=== PATIENT | female | born 1985 | race Caucasian/White ===

== ENCOUNTER 2017-08-19 17:50 | Observation (INO) | payer BC, OTHER ==
[~2017-08-19] VITALS: Ht 162.6 cm; Wt 92.5 kg
[2017-08-19] MEDS ORDERED: IBUPROFEN800 MG PO (18:48)
[2017-08-19] MEDS ORDERED: GUAIFEN-CODEINE10 ML PO (18:49)
[2017-08-19] MEDS ORDERED: ACETAZOLAMIDE250 MG PO (18:52)
--- NOTE | 2017-08-19 22:58 | NUR ---
REPORT RECEIVED FROM Geovany RN, ELIUD. PT ARRIVES TO FLOOR VIA STRETCHER, AMBULATED TO BATHROOM TO VOID AND THEN AMBULATED TO BED. PT APPEARS STEADY ON FEET. ALERT/ORIENTED. REPORTS 4/10 PAIN IN RUQ THAT RADIATES TO SHOULDER, DENIES NEED FOR PAIN MEDICATION AT THIS TIME. LUNGS CLEAR, DIM ON RIGHT SIDE, TACHYPNIC RR: 25-30, RA. HR REGULAR AND TACHY, HR: 115-120. BOWEL TONES ACTIVE, DENIES NAUSEA. SKIN APPEARS GROSSLY INTACT. IV SITES PATENT, IVF INFUSING WNL. PT LAYING ON LEFT SITE, STATES ITS THE ONLY COMFORTABLE POSITION BESIDES SITTING STRAIGHT UP OR STANDING. EDUCATED TO USE CALL LIGHT. ICE WATER AND APPLE JUICE PROVIDED PER REQUEST, PT DOZING WHEN I RETURNED TO ROOM. WILL CONTINUE TO MONITOR.
--- NOTE | 2017-08-19 23:57 | NUR ---
PT CALLED AND STATED THAT HER PAIN WAS STARTING TO GET WORSE, RATES IT 8/10. 10MG PO OXYCODONE GIVEN AT THIS TIME WITH A SNACK OF PUDDING AND CRACKERS. PT SITTING AT SIDE OF BED, RR: 25, SPO2: 95% ON RA. HR: 128. PT DENIES FURTHER REQUESTS, WILL CONTINUE TO MONITOR.
--- NOTE | 2017-08-20 00:58 | NUR ---
PT APPEARS TO BE SLEEPING, NO APPARENT DISTRESS. RESPIRATIONS ARE EVEN AND UNLABORED, RR:20, SPO2: 95% ON RA. HR:118. IVF INFUSING WNL. WILL CONTINUE TO MONITOR.
--- NOTE | 2017-08-20 03:19 | NUR ---
PT WOKE UP AND I COULD HEAR HER GROANING IN PAIN FROM NURSES' STATION, WENT IN TO CHECK ON HER. PT STATES "I MUST HAVE TRIED TO ROLL OVER IN MY SLEEP, NOW IT'S HURTING. CAN I STAND UP?" PT STOOD AT SIDE OF BED WITHOUT ASSISTANCE, THEN AMBULATED TO BATHROOM TO VOID. ONCE RETURNING TO BED, PT STATED THAT THE PAIN WAS STARTING TO DECREASE. I LET HER KNOW THAT SHE COULD HAVE TYLENOL NOW, SINCE HER OTHER PAIN MEDICATION ISN'T DUE YET, BUT PT DENIES NEED FOR MEDICATION AT THIS TIME. ASSESSMENT WAS COMPLETED, NO CHANGES FROM PREVIOUS ASSESSMENT. FRESH WATER AND WARM BLANKET PROVIDED. PT DENIES FURTHER REQUESTS AT THIS TIME.
--- NOTE | 2017-08-20 05:08 | NUR ---
PT CALLED AND REQUESTED PAIN MEDICATION FOR 710 PAIN IN RUQ. 10 MG PO OXYCODONE GIVEN AT THIS TIME. PT DENIES FURTHER NEEDS, WILL CONTINUE TO MONITOR.
--- NOTE | 2017-08-20 05:32 | NUR ---
PT NEEDED TO BE REPOSITIONED FOR LAB DRAW WHICH CAUSED AN INCREASE IN PT'S PAIN, PT YELLED OUT. WITH PAIN, PT TAKES SHALLOW BREATHS AND HER SATURATIONS DECREASED TO 85%. PT PLACED ON 2L OXYGEN. WHEN ASKED IF THERE WAS ANYTHING THAT COULD BE DONE TO HELP PT, SHE REQUESTED TO BE LEFT ALONE. PT IS NOW RESTING IN BED, APPEARS COMFORTABLE. RR:24, SPO2: 97% ON 2L. HR:109.
--- NOTE | 2017-08-20 07:20 | NUR ---
PT CALLED AND REQUESTED TO MOVE TO CHAIR. PT ABLE TO AMBULATE WITHOUT ASSISTANCE. PT STATEST THAT SHE FEELS THAT THE PAIN MEDICATION "IS NOT TOUCHING" HER PAIN. TOLD HER I WOULD CALL DR. WALKER AND SEE IF WE CAN GET SOMETHING ELSE FOR PAIN. CALLED DR. WALKER AND INFORMED HIM OF PT'S PAIN AND RECENT VITAL SIGNS. NEW ORDERS RECEIVED AND READ BACK FOR A ONE TIME DOSE OF 10MG PO OXYCODONE AND AN ORDER FOR A LIDOCAINE PATCH.
--- NOTE | 2017-08-20 07:40 | NUR ---
pt sitting up in the chair, appears to be slightly anxious, resp shallow. pt states "my pain is a 5/10 if I don't move". Questioned pt if she was painful with breath (inspiration/expiration), pt nods head. 10 mg po Oxycodone given per one time order. Vital stable at this time. pt has call light within reach. on continuious pulse ox monitor.
--- NOTE | 2017-08-20 08:00 | NUR ---
IV SITES INTACT, NO REDNESS OR SWELLING NOTED, PT DENIES PAIN WITH FLUSH, FLUSHES EASILY.
--- NOTE | 2017-08-20 08:40 | NUR ---
CALLED TO UPDATE ON PT PAIN STATUS. PT EXTREMLY PAINFUL, TAKING SHORT SHALLOW BREATHS, O2 SAT IS 98% ON 1L O2. PAIN MEDICATION AMOUNT ALREADY INCREASED FROM 10 MG TO 20 MG. ORDER GIVEN FOR VISTARIL 25 MG PRN ANXIETY
--- NOTE | 2017-08-20 09:26 | NUR ---
MED REC COMPLETE
--- NOTE | 2017-08-20 09:30 | NUR ---
PT SITTING UP IN BED, CALM, REPORTS PAIN IMPROVED, UNABLE TO GIVE A SCORE AT THIS TIME. VITALS WNL.
--- NOTE | 2017-08-20 10:45 | NUR ---
PT SLEEPING AT THIS TIME, VITALS WNL.
--- NOTE | 2017-08-20 11:28 | NUR ---
PT UP AND AMBULATED TO THE BATHROOM WITH STANDBY ASSIST. PT STATES PAIN IS "TOLLERABLE" AND RATES 5/10. PT HR ELEVATED WITH AMBULATION. PT ABLE TO BRUSH TEETH, WASH HANDS AND FACE, THEN AMBULATED BACK TO BED. LINENS CHANGED ON BED. PT ORDERED SOME FOOD, STATES "I'M STARVING".
--- NOTE | 2017-08-20 12:40 | NUR ---
PT IV SITES INTACT, NO REDNESS OR SWELLING NOTED, FLUSH EASILY, PT DENIES PAIN AT SITE. PAIN MEDICATION OPTIONS DISCUSSED WITH PT OF 10 MG UP TO 20 MG OF PO OXYCODONE. PT WOULD PREFER TO TAKE 20 MG SHE STATES "I AM JUST AFRAID THAT MY PAIN IS GOING TO GET OUT OF CONTROL AGAIN". PT IS CALM AND ALERT, VITALS WNL AT THIS TIME. 20 MG PO OXYCODONE GIVEN.
--- NOTE | 2017-08-20 13:45 | NUR ---
HANNAH ROQUE ASKED PT IF SHE WOULD LIKE A VISIT FROM [facility]. 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 WILL HONOR HER REQUEST
--- NOTE | 2017-08-20 14:31 | NUR ---
pt up ambulating in the room, ambulated in cantor x1. pt voided in toilet 200 ml concentrated urine. pt now sitting up in the chair rates pain at 3/10 when still and 4/10 with ambulation. pt alert and oriented x4, cooperative. pt spouse now in the room.
[2017-08-20] MEDS ORDERED: ELIQUIS5 MG PO (16:53)
[2017-08-20] MEDS ORDERED: OXYCODONE HCL10 MG PO (16:54)
[2017-08-20] MEDS ORDERED: HYDROXYZINE HCL25 MG PO (16:55)
[2017-08-20] MEDS ORDERED: POTASSIUM CHLO20 ME1 PO (17:11)
== END 2017-08-20 17:50 | disposition home or self-care (01) ==
LOC: ED 17:50 → CCU 17:53 → ED 21:19 → CCU 08-20 17:50
PROVIDERS: ADMIT Internal Medicine
DX: I26.99 Other pulmonary embolism without acute cor pulmonale (principal); J98.11 Atelectasis; F17.210 Nicotine dependence, cigarettes, uncomplicated; F41.9 Anxiety disorder, unspecified; E86.0 Dehydration; J90 Pleural effusion, not elsewhere classified; G93.2 Benign intracranial hypertension; G93.5 Compression of brain; E87.6 Hypokalemia; T50.2X5A Adverse effect of carbonic-anhydrase inhibitors, benzothiadiazides and other diuretics, initial encounter; Z79.899 Other long term (current) drug therapy; Z23 Encounter for immunization
CPT/HCPCS: 71045; 71260; 74177; 80048; 80053; 81001; 81240; 81241; 83605; 83690; 83735; 84703; 85025; 85379; 86146; 86147; 87040; 90674; 96361; 96372; 96374; 96375; 96376; 99285; 99406; G0008; G0378; J0696; J1170; J1650; J2060; J2405; J7030; Q0177; Q9967

== ENCOUNTER 2019-06-28 05:45 | Day surgery (SDC) | payer OTHER ==
[~2019-06-28] VITALS: Ht 162.6 cm; Wt 95.2 kg
--- NOTE | ~2019-06-28 | OR ---
[facility] [address] [place], [place] [address] Draft DATE OF OPERATION: 06/28/2019 SURGEON: Misty Chacon MD PREOPERATIVE DIAGNOSIS: Carcinoma in situ of the cervix. POSTOPERATIVE DIAGNOSIS: Carcinoma in situ of the cervix. Pending pathology. PROCEDURE: Cone biopsy. ANESTHESIA: General LMA. ESTIMATED BLOOD LOSS: 25 mL. DRAINS: None. INDICATIONS AND FINDINGS: The patient is a 34-year-old female, 5, para 3, VIP 2, who has had abnormal Pap smears for at least the last three years and has not undergone any evaluation or treatment until recently. Recent biopsies were done at [facility], which revealed carcinoma in situ. At this point, she is scheduled for a cone biopsy. At the time of surgery, she had an IUD string visible from her Mirena. There was a large nonstaining area predominantly posteriorly. DESCRIPTION OF PROCEDURE: The patient was prepped and draped in the dorsal lithotomy position. A weighted speculum was placed. The anterior lip of the cervix was visualized and grasped with a single-tooth tenaculum. Bdavoq-nc-epuvd sutures were placed at 3 o'clock and 9 o'clock in a hnqxko-fq-dmpes manner using 0 chromic. The cervix was then stained with Lugol's. Following this, the cone biopsy was done beginning at 3 o'clock, coming across posteriorly and around anteriorly. However, during this time as the cervix was grasped at 12 o'clock, this tissue was quite friable and just pulled off. The specimen was sent separately. The remaining cone was removed and the next sample was from essentially 12 to 11 o'clock circumferentially. A 3rd sample was done from 7 to 9 as there appeared to PATIENT NAME: CHETAN WHITE OPERATIVE REPORT DATE OF : [birth year] REPORT #: [id number] PHYSICIAN: MISTY CHACON MD PCP: JAYA RAE REPORT IS CONFIDENTIAL AND NOT TO BE RELEASED WITHOUT AUTHORIZATION [facility] [address] [place], [place] [address] Draft be some nonstaining tissue that had not been removed. The IUD string was lost during this time. Following this, an ECC was done and there appeared to be about 1 cm left of the endocervical canal at this point. Following this, the base of the cone was treated with cautery. There was not much tissue posteriorly remaining and there was a slight tear in the remaining cervix at approximately 6 o'clock. Good hemostasis was noted, however, at this point. The base was then treated with Monsel's solution again with good hemostasis noted. Because of the tearing posteriorly, a taecjo-di-nlmjw suture of the 0 chromic was placed reapproximating those edges and covering the posterior aspect. Following this, the base of the cone was filled with moistened Gel-Foam and sutures tied across as well. All sponge and needle counts were correct. She tolerated procedure well and was taken to the recovery room in good condition. MD BENIGNO Radford/PRIMO /[id number] cc: Pedro Copies: ~ PATIENT NAME: CHETAN WHITE OPERATIVE REPORT DATE OF : [birth year] REPORT #: [id number] PHYSICIAN: MISTY CHACON MD PCP: JAYA RAE REPORT IS CONFIDENTIAL AND NOT TO BE RELEASED WITHOUT AUTHORIZATION
[~2019-06-28 05:45] MED LIST: ACETAZOLAMIDE250 MG PO; CYCLOBENZAPRINE10 MG PO; ELIQUIS5 MG PO; GUAIFEN-CODEINE10 ML PO; HYDROXYZINE HCL25 MG PO; IBUPROFEN800 MG PO; OXYCODONE HCL10 MG PO; POTASSIUM CHLO20 ME1 PO
--- NOTE | 2019-06-28 08:26 | NUR ---
06/28/19 0884 Derek,Elizabeth 08 PT ARRIVED TO PACU ON 6L VIA MASK, LARGE AMOUNTS OF SNORING NOTED. JAW THUST USED OFF AND ON TO MAINTAIN AIRWAY. PT NONAROUSABLE TO PAINFUL STIMULI.
--- NOTE | 2019-06-28 08:49 | NUR ---
PT ARRIVES TO DS RM 4 FROM PACU DROWSY. PT RESPONDS TO VERBAL STIMULI BUT EASILY DOSES OFF WITH NO STIMULATION. PT ABLE TO DENY PAIN OR NAUSEA, RESP EVEN AND UNLABORED ON RA. PT TOLERATES WATER PROVIDED. DC CRITERIA EXPLAINED, CALL LIGHT WITHIN REACH.
[2019-06-28] MEDS ORDERED: NORCO 5-325 TA1 EACH PO (09:15)
[2019-06-28] MEDS ORDERED: IBUPROFEN800 MG PO (09:15)
--- NOTE | 2019-06-28 09:33 | NUR ---
0930: PT USES CALL LIGHT TO NOTIFY RN OF URGE TO VOID. PT SITS AT SIDE OF BED PRIOR TO STANDING, DENIES DIZZINESS OR NAUSEA. PT ABMBULATES WITH STEADY GAIT AND RN ASSIST TO BATHROOM, ABLE TO VOID APPROX 75 MLS YELLOW, PINK-TINGED URINE WITH NO PROBLEMS. PT BACK TO ROOM, IV SALINE LOCKED AND SCD'S REMOVED PER PT REQUEST. ICED WATER REFILLED, CALL LIGHT IN REACH.
--- NOTE | 2019-06-28 09:45 | NUR ---
[id number]: PT FRIEND ARRIVES, IN RM AT BEDSIDE. PT DRESSES SELF. IV REMOVED WNL. DC INSTRUCTIONS GIVEN IN PRESENCE OF PT AND FRIEND, ALL QUESTIONS ADDRESSED. PAIN PRESCRIPTION PROVIDED IN DC FOLDER. PT DC'S FROM RM 4 VIA WC TO PERSONAL VEHICLE AT MAIN ENTRANCE OF HOSPITAL.
--- NOTE | 2019-06-29 18:51 | PATH ---
[facility] [address] [place], [place] [address] Signed SPECIMEN(S): A CONE MARKED AT 12-11 O'CLOCK SPECIMEN(S): B CONE AT 12 O'CLOCK SPECIMEN(S): C ENDOCERVICAL CURETTINGS SPECIMEN(S): D CONE AT 7-9 O'CLOCK SPECIMEN SOURCE: A. CONE MARKED AT 12-11 O'CLOCK B. CONE AT 12 O'CLOCK C. ENDOCERVICAL CURETTINGS D. CONE AT 7-9 O'CLOCK CLINICAL HISTORY: Carcinoma in situ of cervix, THERON 3. FINAL PATHOLOGIC DIAGNOSIS: A. Cervix, 12-11 o'clock, cone biopsy: - High-grade squamous intraepithelial lesion (HSIL, CIN3). - Surgical margins negative for dysplasia. - Negative for carcinoma. B. Cervix, 12 o'clock, cone biopsy: - High-grade squamous intraepithelial lesion (HSIL, THERON 3) with endocervical gland involvement, see Comment. C. Endocervix, curettage: - Scant fragments of endocervical glandular mucosa and stroma with no histopathologic abnormality. - Negative for dysplasia or malignancy. D. Cervix, 7-9 o'clock, cone biopsy: - Focal high-grade squamous intraepithelial lesion (HSIL, THERON 3), see Comment. COMMENT: The 12 o'clock (B) and 7 to 9 o'clock (D) cervical cone biopsies were received unoriented, therefore definitive margin status cannot be determined. NAL:cml:C2NR MICROSCOPIC EXAMINATION: Histologic sections of all submitted blocks are examined by light microscopy. These findings, together with the gross examination, support the pathologic diagnosis. GROSS DESCRIPTION: Four specimens are received in four containers, labeled "AH." PATIENT NAME: CHETAN WHITE PATHOLOGY DATE OF : [birth year] REPORT #: [id number] PHYSICIAN: YVETTE PATHOLOGY PCP: JAYA RAE REPORT IS CONFIDENTIAL AND NOT TO BE RELEASED WITHOUT AUTHORIZATION [facility] [address] [place], [place] [address] Signed A. The specimen, labeled "AH, cervical cone," is received in formalin and consists of a 2.6 x 1.3 x 1.3 cm strip of ann-brown mucosa. There is a suture at one side designated as 12 to 11 o'clock. Cassette summary: (A1) 12 o'clock half (A2) Opposite half. B. The specimen, labeled "AH, cone biopsy," is received in formalin and consists of a 1.7 x 1.0 x 0.4 cm portion of dark brown mucosa. A suture is designated as 12 o'clock, but no suture is grossly identified on the specimen or within the container. Specimen is entirely submitted in cassettes (B1-B2). C. The specimen, labeled "AH, endocervical curettings," is received in formalin and consists of a 0.2 x 0.2 x 0.1 cm aggregate of minute scant tissue fragments that may not survive processing. Specimen is entirely submitted in cassette (C1). D. The specimen, labeled "AH, cervical cone biopsy 7 to 9 o'clock," is received in formalin and consists of a 2.1 x 1.1 x 0.8 cm portion of ann mucosa. Specimen is entirely submitted in cassettes (D1-D2). AM (under the direct supervision of a pathologist) The Gross Description was prepared using a voice recognition system. The report was reviewed for accuracy; however, sound-alike word errors, addition and/or deletions may occur. If there is any question about this report, please contact Client Services. PERFORMING LABORATORY: The technical component was performed by [email or web address], [address] [place] [id number] (Supervisor Plastic Sheets: Sarah Matrinez MD; CLIA# [id number]). Professional interpretation was performed by [facility], [address] [place] [address] (Supervisor Plastic Sheets: Alex Rincon MD; CLIA# [id number]). Diagnostician: Julia Morales MD Pathologist Electronically Signed 06/29/2019 Copies: PATIENT NAME: CHETAN WHITE PATHOLOGY DATE OF : [birth year] REPORT #: [id number] PHYSICIAN: YVETTE SINGLETON PCP: JAYA RAE REPORT IS CONFIDENTIAL AND NOT TO BE RELEASED WITHOUT AUTHORIZATION [facility] [address] [place], [place] [address] Signed ~ PATIENT NAME: CHETAN WHITE PATHOLOGY DATE OF : [birth year] REPORT #: [id number] PHYSICIAN: YVETTE PATHOLOGY PCP: JAYA RAE REPORT IS CONFIDENTIAL AND NOT TO BE RELEASED WITHOUT AUTHORIZATION
== END 2019-06-28 09:50 | disposition home or self-care (01) ==
LOC: DS 05:45
PROVIDERS: Obstetrics & Gynecology
PROC: 0UBC7ZX Excision of Cervix, Via Natural or Artificial Opening, Diagnostic (ICD-10-PCS; principal; 2019-06-28 06:45)
DX: D06.9 Carcinoma in situ of cervix, unspecified (principal); F17.210 Nicotine dependence, cigarettes, uncomplicated; E66.9 Obesity, unspecified; G43.009 Migraine without aura, not intractable, without status migrainosus; Q07.00 Arnold-Chiari syndrome without spina bifida or hydrocephalus; Z86.711 Personal history of pulmonary embolism; Z68.35 Body mass index [BMI] 35.0-35.9, adult
CPT/HCPCS: J1100; J1200; J1885; J2405; J2704; J2765; J3010; J7121

== ENCOUNTER 2021-01-28 11:00 | Emergency (ER) | payer OTHER ==
[~2021-01-28] VITALS: Ht 162.6 cm; Wt 86.2 kg
[~2021-01-28 11:00] MED LIST changes: +NORCO 5-325 TA1 EACH PO
[2021-01-28] MEDS ORDERED: ACETAZOLAMIDE250 MG PO (12:18)
== END 2021-01-28 12:29 | disposition home or self-care (01) ==
LOC: ED 11:00
DX: G93.5 Compression of brain (principal); F17.200 Nicotine dependence, unspecified, uncomplicated
CPT/HCPCS: 99283

== ENCOUNTER 2023-10-27 05:50 | Day surgery (SDC) | payer OTHER ==
[~2023-10-27] VITALS: Ht 162.6 cm; Wt 81.8 kg
[~2023-10-27 05:50] MED LIST changes: +ADDERALL 20 MG20 MG PO; +LACTATED RINGER'S 1,000 ML IV SCH
[2023-10-27 06:13] VITALS: BP 128/96
[2023-10-27 06:40] LABS: BASOPHILS 1.1 % (0-2); EOSINOPHILS 3.6 % (0-6); HEMATOCRIT 42.2 % (35.0-50.0); LYMPHOCYTES 28.1 % (24-44); MCH 28.5 (27-36); MCHC 33.2 g/dl (30-36); MCV 85.8 fl (81-99); NEUTROPHILS 62.2 % (39-80); PLATELET COUNT 182 K/uL (140-440); RBC 4.92 M/ul (4.3-5.7); RDW 13.9 (10.5-15.0)
[2023-10-27] MEDS ORDERED: LIDOCAINE HCL 1% 5 ML SDV INJ ONE (07:00)
[2023-10-27] MEDS ORDERED: FAMOTIDINE 20 MG/ 2 ML VIAL IV SCH (07:00)
[2023-10-27] MEDS ORDERED: IBLOOD GLUCOSE TEST STRIP 1 EA TEST VI PRN (07:00)
[2023-10-27] MEDS ORDERED: METOCLOPRAMIDE HCL 10 MG/2 ML SDV IV SCH (07:00)
--- NOTE | 2023-10-27 07:44 | NUR ---
VISITED DURING SPIRITUAL CARE ROUNDS. PROVIDED HOSPITALITY; SUPPORTIVE PRESENCE; PRAYER. PT AND DIPLOMATIC COURIER EXPRESSED GRATITUDE.
--- NOTE | 2023-10-27 08:01 | NUR ---
ESTER 0745: PT IS CHECKED ON AND GIVEN AN UPDATE. SHE IS ASKED IF SHE IS WARM ENOUGH, SHE CONFIRMS SHE IS. SHE IS REMINDED TO USE HER CALL LIGHT IF SHE NEEDS ANYTHING.
[2023-10-27] MEDS ORDERED: ACETAMINOPHEN 1,000 MG/100 ML VIAL ONE (08:43)
[2023-10-27] MEDS ORDERED: ondansetron HCL 4 MG/2 ML VIAL ONE (08:43)
[2023-10-27] MEDS ORDERED: propofoL 200 MG/20 ML VIAL ONE ×2 (08:43→08:44)
[2023-10-27] MEDS ORDERED: LIDOCAINE HCL 2% 5 ML SDV ONE (08:43)
[2023-10-27] MEDS ORDERED: KETOROLAC TROMETHAMINE 30 MG/ML VIAL ONE (08:43)
[2023-10-27] MEDS ORDERED: MIDAZOLAM HCL 2 MG/2 ML VIAL ONE (08:44)
[2023-10-27] MEDS ORDERED: fentaNYL citrate 100 MCG/2 ML VIAL ONE (08:44)
[2023-10-27] MEDS ORDERED: DEXAMETHASONE SOD PHOS 4 MG/ML VIAL ONE (08:44)
[2023-10-27] MEDS ORDERED: MAGNESIUM HYDROXIDE/AL HYDROX 30 ML CUP PO PRN (09:15)
[2023-10-27] MEDS ORDERED: HYDROCODONE/ACETA 5/325 TAB PO PRN (09:15)
[2023-10-27] MEDS ORDERED: NALOXONE HCL 0.4 MG SYR IV PRN (09:15)
[2023-10-27] MEDS ORDERED: LACTATED RINGER'S 1,000 ML IV SCH (09:15)
[2023-10-27] MEDS ORDERED: PROCHLORPERAZINE EDISYLATE 10 MG/2 ML VIAL IV PRN (09:15)
[2023-10-27] MEDS ORDERED: ondansetron HCL 4 MG TAB PO PRN (09:15)
[2023-10-27] MEDS ORDERED: FAMOTIDINE 20 MG TAB PO PRN (09:15)
[2023-10-27] MEDS ORDERED: ondansetron HCL 4 MG/2 ML VIAL IV PRN (09:15)
--- NOTE | 2023-10-27 09:25 | NUR ---
10/27/23 0925 Leonila Prado 0913 PT ARRIVED IN PACU NON RESPONSIVE TO NOXIOUS STIMULI WITH OPA IN PLACE.
[2023-10-27 09:44] VITALS: BP 106/79
[2023-10-27] MEDS ORDERED: IBUPROFEN 800 MG TAB PO SCH (14:00)
--- NOTE | 2023-11-10 12:24 | OR ---
[facility] [address] [place], [place] [address] Signed DATE OF OPERATION: 10/27/2023 SURGEON: Misty Chacon MD PREOPERATIVE DIAGNOSES: Lost intrauterine device string, cervical stenosis. POSTOPERATIVE DIAGNOSES: Lost intrauterine device string, cervical stenosis. PROCEDURE: Retrieval of intrauterine device. ANESTHESIA: MAC. ESTIMATED BLOOD LOSS: Minimal. DRAINS: None. INDICATIONS AND FINDINGS: The patient is a 38-year-old female, who has been using Mirena successfully, but has been having increasing bleeding and desired replacement. Unfortunately, she had a cone biopsy and lost the IUD string at that point. Attempts in the office to retrieve the IUD were unsuccessful. She is now scheduled for removal of the IUD. At the time of surgery, exam under anesthesia was normal. Her cervix was stenotic and irregular consistent with her prior cone. After dilation, the IUD was easily retrieved. PROCEDURE IN DETAIL: The patient was prepped and draped in the dorsal lithotomy position. An open-sided speculum was placed. The anterior lip of the cervix was visualized and grasped with a single-tooth tenaculum. The endocervical canal was then dilated with slight difficulty to a #9 dilator. At this point, stone forceps could be introduced and the IUD was retrieved without difficulty. The tenaculum was then removed and there was no evidence of any ongoing bleeding. The procedure was then terminated. All sponge counts were correct. The patient was taken to the recovery room in good condition. Electronically Signed By: MISTY CHACON MD 11/10/23 1224 PATIENT NAME: CHETAN WHITE OPERATIVE REPORT DATE OF : [birth year] REPORT #: [id number] PHYSICIAN: MISTY CHACON MD PCP: COLIN PASCUAL PA-C REPORT IS CONFIDENTIAL AND NOT TO BE RELEASED WITHOUT AUTHORIZATION [address] [address] Signed MD BENIGNO Radford/MODL /[id number] Copies: ~ Electronically Signed By: MISTY CHACON MD 11/10/23 1224 PATIENT NAME: CHETAN WHITE OPERATIVE REPORT DATE OF : [birth year] REPORT #: [id number] PHYSICIAN: MISTY CHACON MD PCP: COLIN PASCUAL PA-C REPORT IS CONFIDENTIAL AND NOT TO BE RELEASED WITHOUT AUTHORIZATION
== END 2023-10-27 09:52 | disposition home or self-care (01) ==
LOC: DS 05:50 → OPS 05:50 → DS 07:30 → OPS 09:00
PROVIDERS: ATTEND Obstetrics & Gynecology
PROC: 0UPDXHZ Removal of Contraceptive Device from Uterus and Cervix, External Approach (ICD-10-PCS; principal; 2023-10-27 09:00)
DX: T83.32XA Displacement of intrauterine contraceptive device, initial encounter (principal); Y76.8 Miscellaneous obstetric and gynecological devices associated with adverse incidents, not elsewhere classified; N88.2 Stricture and stenosis of cervix uteri; I10 Essential (primary) hypertension; Z91.030 Bee allergy status
CPT/HCPCS: 00940; 36415; 84703; 85025; J0131; J1100; J1885; J2001; J2250; J2405; J2704; J2765; J3010; J7121

== ENCOUNTER 2024-03-02 07:35 | Day surgery (SDC) | payer OTHER ==
[2024-02-29 08:26] VITALS: BP 119/88
[~2024-03-02] VITALS: Ht 162.6 cm; Wt 77.3 kg
--- NOTE | ~2024-03-02 | OR ---
[facility] [address] [place], [place] [address] Draft DATE OF OPERATION: 03/02/2024 SURGEON: Maxine San MD PREOPERATIVE DIAGNOSES: 1. Left soft tissue mass (symptomatic), left posterior superior gluteal area. 2. Multiple scalp cysts (symptomatic). POSTOPERATIVE DIAGNOSES: 1. Left probable epidermal inclusion cyst, posterior superior gluteal area, excision size 7 cm, lesion size 5 cm. 2. 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 PROCEDURES: 1. Excision of soft tissue mass, left posterior superior gluteal area 7 cm excision size, full-thickness skin and subcutaneous tissue. 2. Excision of scalp cyst 2 cm. 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 INDICATION: This 38-year-old white woman is a patient of Colin Baldwin and was seen with scalp lesions, which are symptomatic and the left lateral hip soft tissue mass. The small mass in the left lateral hip area was associated with blunt direct trauma to the area causing fair amount of bruising and ecchymosis. The area has largely resolved, however, there remains a mass which is tender and moderately pigmented. The lesion has been present for at least two years she thinks. This is considered likely an epidermoid cyst by her provider at that time, EUNICE Auguste. Additionally, she has had cyst-like lesions over the scalp. Most of them are quite small, all of them symptomatic and a dominant one approximately 2 cm in size in the frontoparietal area is symptomatic. Excision of both lesions has been offered at this time. The risk of bleeding, infection, recurrence and other unforeseen complications was reviewed with her. She understands and wished to proceed. FINDINGS: The lesion in the left posterior superior gluteal area was most likely an epidermal inclusion cyst with overlying pigmentation in the dermis. Wide resection was undertaken PATIENT NAME: CHETAN WHITE OPERATIVE REPORT DATE OF : [birth year] REPORT #: [id number] PHYSICIAN: MAXINE SAN MD PCP: COLIN BALDWIN PA-C REPORT IS CONFIDENTIAL AND NOT TO BE RELEASED WITHOUT AUTHORIZATION [facility] [address] [place], [place] [address] Draft through the subcutaneous tissue. Multilayered closure was accomplished. 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 DESCRIPTION OF PROCEDURE: The patient was brought to the operating room, placed in the lateral decubitus position, left side up. The previously identified lesion of the left posterior superior gluteal area was identified once again. The apex of the scalp similarly was identified and had been previously marked also. She was given intravenous sedation and preparation of the left hip area undertaken with a chlorhexidine solution. It was draped sterilely. The area was marked and 10 mL of 0.25% Marcaine with epinephrine was injected locally. Elliptical incision was made along the line of skin tension. Dissection was carried through the dermis with electrocautery. Additional local anesthetic was given as needed. Wide and deep resection was undertaken into the fatty layer. Complete excision was undertaken. The lesion was most consistent with an epidermal inclusion cyst which was large and possibly traumatized from the past. Irrigation was undertaken. The wound was closed in layers with interrupted 2-0 Vicryl and a running subcuticular 3-0 Vicryl for the skin. Steri-Strips were applied as was an Acticoat dressing. Examination of the scalp was undertaken and additional hair clipped and the area prepared with a Betadine solution. A blue towel drape had been modified with the small hole in the center portion to provide some coverage. Additional 0.25% Marcaine with epinephrine was injected locally and an incision was made directly over the area. 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 The wound was closed with two separate interrupted 2-0 nylon sutures. Bacitracin was applied to the area. Blood loss was minimal. MD MEENAKSHI Bailey/PRIMO /[id number] cc: Colin Baldwin PA-C Copies: PATIENT NAME: CHETAN WHITE OPERATIVE REPORT DATE OF : [birth year] REPORT #: [id number] PHYSICIAN: MAXINE SAN MD PCP: COLIN BALDWIN PA-C REPORT IS CONFIDENTIAL AND NOT TO BE RELEASED WITHOUT AUTHORIZATION [address] [address] Draft ~ PATIENT NAME: CHETAN WHITE PAYAN OPERATIVE REPORT DATE OF : [birth year] REPORT #: [id number] PHYSICIAN: MAXINE SAN MD PCP: COLIN BALDWIN PA-C REPORT IS CONFIDENTIAL AND NOT TO BE RELEASED WITHOUT AUTHORIZATION
[~2024-03-02 07:35] MED LIST changes: +IBLOOD GLUCOSE TEST STRIP 1 EA TEST VI PRN; +LIDOCAINE HCL 1% 5 ML SDV INJ ONE
[2024-03-02 08:29] VITALS: BP 116/75
--- NOTE | 2024-03-02 08:45 | NUR ---
NO ONE WAITING WITH PT.
[2024-03-02] MEDS ORDERED: LIDOCAINE HCL 2% 5 ML SDV ONE (09:10)
[2024-03-02] MEDS ORDERED: fentaNYL citrate 100 MCG/2 ML VIAL ONE (09:10)
[2024-03-02] MEDS ORDERED: propofoL 200 MG/20 ML VIAL ONE ×2 (09:10→10:00)
[2024-03-02] MEDS ORDERED: MIDAZOLAM HCL 2 MG/2 ML VIAL ONE (09:11)
[2024-03-02] MEDS ORDERED: CEFAZOLIN SODIUM 1 GM/10 ML SYR IV ONE (09:30)
--- NOTE | 2024-03-02 10:29 | NUR ---
03/02/24 Shanel9 Mariah Galeas 1017- PT PRESENTS TO PACU, SEMI SAM POSITION. PT ON ROOM AIR, O2 SATS NORMAL, SNORING RESPIRATIONS. REPOSITIONED HEAD AND SNORING MINIMAL. LR INFUSING TO RH IV. ABD SOFT, NON DISTENDED. DRESSING TO LEFT HIP, CDI. TOP OF BACK OF HEAD SITE, NO DRESSING, SMALL AMOUNT OF DRAINAGE. ABD SOFT, NON DISTENDED. ALL MONITORS IN PLACE. NO SIGNS OF DISTRESS.
[2024-03-02] MEDS ORDERED: IBUPROFEN 600 MG TAB PO PRN (10:30)
[2024-03-02] MEDS ORDERED: OXYCODONE/APAP 7.5/325 TAB PO PRN (10:30)
[2024-03-02] MEDS ORDERED: LACTATED RINGER'S 1,000 ML IV SCH (10:30)
[2024-03-02] MEDS ORDERED: NALOXONE HCL 0.4 MG SYR IV PRN (10:30)
[2024-03-02] MEDS ORDERED: ACETAMINOPHEN 500 MG TAB PO PRN (10:30)
[2024-03-02] MEDS ORDERED: OXYCODON-ACETA1 EAC2 PO (10:32)
[2024-03-02] MEDS ORDERED: IBUPROFEN600 MG PO (10:32)
[2024-03-02] MEDS ORDERED: ACETAMINOPHEN500 MG PO (10:32)
[2024-03-02 11:41] VITALS: BP 114/78
--- NOTE | 2024-03-08 14:42 | PATH ---
[facility] [address] [facility] [place], [place] [address] Signed SPECIMEN(S): A LEFT HIP GLUTEAL SOFT TISSUE MASS SPECIMEN(S): B SCALP SUBCUTANEOUS LESION SPECIMEN SOURCE: A. LEFT HIP GLUTEAL SOFT TISSUE MASS B. SCALP SUBCUTANEOUS LESION CLINICAL HISTORY: Neoplasm of soft tissue mass FINAL PATHOLOGIC DIAGNOSIS: A. Skin and soft tissue, left hip gluteal, excision: - Pilar cyst, ruptured B. Skin, scalp, excision: - Pilar cyst BRP MICROSCOPIC EXAMINATION: Histologic sections of all submitted blocks are examined by light microscopy. These findings, together with the gross examination, support the pathologic diagnosis. GROSS DESCRIPTION: A. The specimen, labeled and designated "Barbara, [place], left hip gluteal soft tissue mass," is received in formalin and consists of ellipse of white skin measuring 5.0 x 2.3 cm underlying soft tissue extending out to 2.5 cm. Skin surface shows slightly discolored decker-ann area measuring 2.0 x 1.5 x 0.2 cm. This area grossly measures 0.2 cm nearest margin resection. Surgical margin is inked blue. Specimen is serially sectioned to reveal cystic cavity filled with white-ann friable measuring 2.0 cm in greatest dimension. Senior Clerk sections submitted in cassettes A1 through A4. B. The specimen, labeled and designated "Barbara, A, scalp subcutaneous lesion," is received in formalin and consists of single fragment of white-ann rubbery tissue measuring 1.2 x 1.0 x 0.7 cm. Specimen entirely inked blue bisected to reveal ann slightly friable to firm cut surfaces. Specimen entirely submitted in single cassette. MEENAKSHI (under the direct supervision of a pathologist) The Gross Description was prepared using a voice recognition system. The report was reviewed for accuracy; however, sound-alike word errors, addition and/or PATIENT NAME: CHETAN WHITE PATHOLOGY DATE OF : 83 REPORT #: [id number] PHYSICIAN: [facility] PCP: COLIN PASCUAL PA-C REPORT IS CONFIDENTIAL AND NOT TO BE RELEASED WITHOUT AUTHORIZATION [facility] [address] [place], [place] [address] Signed deletions may occur. If there is any question about this report, please contact Client Services. ADDITIONAL NOTES: Immunohistochemical and/or in situ hybridization studies if performed in this case included appropriate positive controls that reacted as expected. This test was developed and its performance characteristics determined by [facility]. It has not been cleared or approved by the U.S. Food and Drug Administration. The FDA has determined that such clearance or approval is not necessary. This test is used for clinical purposes. It should not be regarded as investigational or for research. [facility] is certified under the Clinical Laboratory Improvement Amendments of 1988 (CLIA) as qualified to perform high complexity clinical laboratory testing. PERFORMING LABORATORY: Technical component was performed by [facility], [address] [place] [address] (CLIA# [id number]). Professional interpretation was performed by [facility], [address] [place] [id number] (CLIA#: [id number]). Diagnostician: Pablo Vidal MD Pathologist Electronically Signed 03/08/2024 Copies: ~ PATIENT NAME: CHETAN WHITE PATHOLOGY DATE OF : 83 REPORT #: [id number] PHYSICIAN: YVETTE PATHOLOGY PCP: COLIN PASCUAL PA-C REPORT IS CONFIDENTIAL AND NOT TO BE RELEASED WITHOUT AUTHORIZATION
== END 2024-03-02 11:05 | disposition home or self-care (01) ==
LOC: DS 07:35
PROVIDERS: ATTEND Surgery
PROC: 0HB0XZZ Excision of Scalp Skin, External Approach (ICD-10-PCS; 2024-03-02)
PROC: 0JBM0ZZ Excision of Left Upper Leg Subcutaneous Tissue and Fascia, Open Approach (ICD-10-PCS; principal; 2024-03-02 09:35)
DX: L72.11 Pilar cyst (principal); Z79.899 Other long term (current) drug therapy
CPT/HCPCS: 00300; J0690; J2001; J2250; J2704; J3010; J7121